=== PATIENT | male | born 1935 | race Caucasian/White ===

== ENCOUNTER 2016-11-13 12:30 | Outpatient (CLI) | payer MEDICARE ==
[2016-11-13 14:42] LABS: Cardiac Risk 3.8 (Less than 4.5)
== END 2016-11-13 12:31 ==
LOC: EDBD 12:30 → NAVSJIPCSP 12:30
PROVIDERS: ATTEND Internal Medicine
DX: Z23 Encounter for immunization (principal); E78.5 Hyperlipidemia, unspecified
CPT/HCPCS: 36415; 80061

== ENCOUNTER 2022-03-21 14:59 | Inpatient (IN) | payer MEDICARE ==
[2022-03-21] MEDS ORDERED: Bisacodyl 5 MG TAB PO PRN (17:10)
[2022-03-21] MEDS ORDERED: Ondansetron ODT 4 MG TAB PO PRN (17:10)
[2022-03-21] MEDS ORDERED: cloNIDine 0.1 MG TAB PO PRN (18:20)
[2022-03-21] MEDS ORDERED: Amlodipine 5 MG TAB PO SCH (18:30)
[2022-03-21] MEDS: Atorvastatin Calcium 20 MG TAB PO SCH (20:39)
[2022-03-21] MEDS: Donepezil HCl 5 MG TAB PO SCH (20:39)
[2022-03-21] MEDS: Tamsulosin HCl 0.4 MG CAP PO SCH (20:39)
[2022-03-22 06:25] LABS: #Basophils 0.1 thou/uL (0.0-0.2); #Eosinphils 0.2 thou/uL (0.0-0.7); #Lymphocytes 1.7 thou/uL (1.20-3.40); #Monocytes 0.7 thou/uL (0.11-0.59); #Neutrophils 3.9 thou/uL (1.40-6.50); %Eosinophils 2.5 % (0.0-10.0); %Lymphocytes 25.9 % (21.0-51.0); %Monocytes 10.3 % (0.0-10.0); %Neutrophils 60.3 % (42.0-75.0); Hemoglobin 13.3 g/dL (14.0-18.0); Mean Corpuscular HGB CONC 31.7 g/dL (32.0-36.0); Mean Corpuscular Hemoglobin 29.9 pg (27.0-31.0); Mean Corpuscular Volume 94.3 fL (78.0-98.0); Mean Platelet Volume 8.2 fL (7.4-10.4); Platelet Count 150 thou/uL (130-400); RBC Distribution Width 11.9 % (11.5-14.5); Red Blood Cell (RBC) Count 4.45 mill/uL (4.70-6.10); White Blood Cell (WBC) Count 6.5 thou/uL (4.8-10.8)
[2022-03-22 06:38] LABS: ALT (SGPT) 23 U/L (8-55); AST (SGOT) 16 U/L (5-34); Albumin 3.5 g/dL (3.4-4.8); Alkaline Phosphatase 51 U/L (40-110); Anion Gap 15 mmol/L (10-20); BUN (Urea Nitrogen) 14 mg/dL (8.4-25.7); Bilirubin, Total 0.8 mg/dL (0.2-1.2); Calc. Creatinine Clearance 77 mL/min (70-130); Calcium 8.9 mg/dL (7.8-10.44); Carbon Dioxide 26 mmol/L (23-31); Chloride 101 mmol/L (98-107); Estimated GFR 86; Globulin 3.1 g/dL (2.4-3.5); Glucose 114 mg/dL (83-110); Potassium 3.1 mmol/L (3.5-5.1); Protein, Total 6.6 g/dL (5.8-8.1); Sodium 139 mmol/L (136-145)
[2022-03-22] MEDS: Enoxaparin Sodium 40 MG/0.4 ML SYRINGE SC SCH (08:18)
[2022-03-22] MEDS ORDERED: Amlodipine 5 MG TAB PO SCH (13:00)
[2022-03-22] MEDS: Tamsulosin HCl 0.4 MG CAP PO SCH (20:55)
[2022-03-22] MEDS: Donepezil HCl 5 MG TAB PO SCH (20:55)
[2022-03-22] MEDS: Atorvastatin Calcium 20 MG TAB PO SCH (20:55)
[2022-03-23] MEDS: Potassium Chloride 20 MEQ TAB PO SCH (07:55)
[2022-03-23] MEDS: Enoxaparin Sodium 40 MG/0.4 ML SYRINGE SC SCH (07:55)
[2022-03-23] MEDS ORDERED: Ondansetron ODT 4 MG TAB SL PRN (08:15)
[2022-03-23] MEDS: Amlodipine 5 MG TAB PO SCH (10:20)
[2022-03-23] MEDS: Atorvastatin Calcium 20 MG TAB PO SCH (20:59)
[2022-03-23] MEDS: Tamsulosin HCl 0.4 MG CAP PO SCH (20:59)
[2022-03-23] MEDS: Donepezil HCl 5 MG TAB PO SCH (20:59)
[2022-03-23] MEDS: Acetaminophen 325 MG TAB PO PRN (20:59)
[2022-03-24] MEDS: Enoxaparin Sodium 40 MG/0.4 ML SYRINGE SC SCH (07:47)
[2022-03-24] MEDS: Potassium Chloride 20 MEQ TAB PO SCH (07:50)
[2022-03-24] MEDS: Amlodipine 5 MG TAB PO SCH (07:53)
[2022-03-24] MEDS: Atorvastatin Calcium 20 MG TAB PO SCH (20:04)
[2022-03-24] MEDS: Acetaminophen 325 MG TAB PO PRN (20:05)
[2022-03-24] MEDS: Tamsulosin HCl 0.4 MG CAP PO SCH (20:05)
[2022-03-24] MEDS: Donepezil HCl 5 MG TAB PO SCH (20:05)
[2022-03-25] MEDS: Enoxaparin Sodium 40 MG/0.4 ML SYRINGE SC SCH (07:32)
[2022-03-25] MEDS: Amlodipine 5 MG TAB PO SCH (07:33)
[2022-03-25] MEDS: Senokot S 8.6-50 MG TAB PO PRN (07:33)
[2022-03-25] MEDS: Potassium Chloride 20 MEQ TAB PO SCH (07:33)
[2022-03-25] MEDS ORDERED: Phenazopyridine HCl 100 MG TAB PO SCH ×2 (10:00→13:00)
[2022-03-25] MEDS ORDERED: Phenazopyridine HCl 95 MG TAB PO SCH (11:45)
[2022-03-25] MEDS ORDERED: Phenazopyridine HCl 95 MG TAB ONE ×3 (11:46→17:15)
[2022-03-25] MEDS: Phenazopyridine HCl 95 MG TAB PO SCH ×2 (14:28→18:03)
[2022-03-25] MEDS: Donepezil HCl 5 MG TAB PO SCH (20:22)
[2022-03-25] MEDS: Tamsulosin HCl 0.4 MG CAP PO SCH (20:22)
[2022-03-25] MEDS: Atorvastatin Calcium 20 MG TAB PO SCH (20:22)
[2022-03-26 06:06] LABS: Anion Gap 13 mmol/L (10-20); BUN (Urea Nitrogen) 16 mg/dL (8.4-25.7); Calc. Creatinine Clearance 71 mL/min (70-130); Calcium 8.9 mg/dL (7.8-10.44); Carbon Dioxide 27 mmol/L (23-31); Chloride 105 mmol/L (98-107); Estimated GFR 85; Glucose 105 mg/dL (83-110); Potassium 3.7 mmol/L (3.5-5.1); Sodium 141 mmol/L (136-145)
[2022-03-26] MEDS: Enoxaparin Sodium 40 MG/0.4 ML SYRINGE SC SCH (08:24)
[2022-03-26] MEDS: Amlodipine 5 MG TAB PO SCH (08:24)
[2022-03-26] MEDS: Phenazopyridine HCl 95 MG TAB PO SCH ×3 (08:25→16:57)
[2022-03-26] MEDS: Donepezil HCl 5 MG TAB PO SCH (20:17)
[2022-03-26] MEDS: Tamsulosin HCl 0.4 MG CAP PO SCH (20:17)
[2022-03-26] MEDS: Atorvastatin Calcium 20 MG TAB PO SCH (20:17)
[2022-03-27] MEDS: Enoxaparin Sodium 40 MG/0.4 ML SYRINGE SC SCH (09:05)
[2022-03-27] MEDS: Amlodipine 5 MG TAB PO SCH (09:06)
[2022-03-27] MEDS: Phenazopyridine HCl 95 MG TAB PO SCH (09:06)
[2022-03-27] MEDS: Tamsulosin HCl 0.4 MG CAP PO SCH (20:23)
[2022-03-27] MEDS: Atorvastatin Calcium 20 MG TAB PO SCH (20:23)
[2022-03-27] MEDS: Donepezil HCl 5 MG TAB PO SCH (20:23)
[2022-03-27] MEDS ORDERED: Lisinopril 5 MG TAB PO SCH (22:00)
[2022-03-28] MEDS: Amlodipine 10 MG TAB PO SCH (07:46)
[2022-03-28] MEDS: Senokot S 8.6-50 MG TAB PO PRN (07:46)
[2022-03-28] MEDS: Finasteride 5 MG TAB PO SCH (07:46)
[2022-03-28] MEDS: Enoxaparin Sodium 40 MG/0.4 ML SYRINGE SC SCH (07:46)
[2022-03-28] MEDS ORDERED: Bisacodyl 10 MG SUPP PR SCH (14:00)
[2022-03-28] MEDS: Donepezil HCl 5 MG TAB PO SCH (20:42)
[2022-03-28] MEDS: Tamsulosin HCl 0.4 MG CAP PO SCH (20:42)
[2022-03-28] MEDS: Atorvastatin Calcium 20 MG TAB PO SCH (20:42)
[2022-03-29] MEDS: Senokot S 8.6-50 MG TAB PO PRN (07:53)
[2022-03-29] MEDS: Enoxaparin Sodium 40 MG/0.4 ML SYRINGE SC SCH (07:53)
[2022-03-29] MEDS: Finasteride 5 MG TAB PO SCH (07:54)
[2022-03-29] MEDS: Amlodipine 10 MG TAB PO SCH (08:00)
[2022-03-29] MEDS: Tamsulosin HCl 0.4 MG CAP PO SCH (20:38)
[2022-03-29] MEDS: Donepezil HCl 5 MG TAB PO SCH (20:38)
[2022-03-29] MEDS: Atorvastatin Calcium 20 MG TAB PO SCH (20:38)
[2022-03-30 06:02] LABS: #Basophils 0.1 thou/uL (0.0-0.2); #Eosinphils 0.2 thou/uL (0.0-0.7); #Lymphocytes 2.8 thou/uL (1.20-3.40); #Monocytes 0.6 thou/uL (0.11-0.59); #Neutrophils 3.6 thou/uL (1.40-6.50); %Basophils 1.6 % (0.0-1.0); %Eosinophils 2.9 % (0.0-10.0); %Lymphocytes 37.8 % (21.0-51.0); %Monocytes 8.2 % (0.0-10.0); %Neutrophils 49.5 % (42.0-75.0); Hemoglobin 12.3 g/dL (14.0-18.0); Mean Corpuscular HGB CONC 31.8 g/dL (32.0-36.0); Mean Corpuscular Hemoglobin 30.5 pg (27.0-31.0); Mean Corpuscular Volume 95.9 fL (78.0-98.0); Mean Platelet Volume 7.4 fL (7.4-10.4); Platelet Count 251 thou/uL (130-400); Red Blood Cell (RBC) Count 4.02 mill/uL (4.70-6.10); White Blood Cell (WBC) Count 7.3 thou/uL (4.8-10.8)
[2022-03-30 06:14] LABS: Anion Gap 13 mmol/L (10-20); BUN (Urea Nitrogen) 21 mg/dL (8.4-25.7); Calc. Creatinine Clearance 61 mL/min (70-130); Calcium 9.1 mg/dL (7.8-10.44); Carbon Dioxide 28 mmol/L (23-31); Chloride 105 mmol/L (98-107); Estimated GFR 78; Glucose 102 mg/dL (83-110); Potassium 3.9 mmol/L (3.5-5.1); Sodium 142 mmol/L (136-145)
[2022-03-30] MEDS ORDERED: Sodium Chloride 0.9% 500 ML IV SCH (07:45)
[2022-03-30] MEDS: Amlodipine 5 MG TAB PO SCH (07:59)
[2022-03-30] MEDS: Finasteride 5 MG TAB PO SCH (07:59)
[2022-03-30] MEDS: Enoxaparin Sodium 40 MG/0.4 ML SYRINGE SC SCH (08:00)
[2022-03-30] MEDS: Donepezil HCl 5 MG TAB PO SCH (20:22)
[2022-03-30] MEDS: Atorvastatin Calcium 20 MG TAB PO SCH (20:22)
[2022-03-30] MEDS: Tamsulosin HCl 0.4 MG CAP PO SCH (20:22)
[2022-03-31] MEDS: Enoxaparin Sodium 40 MG/0.4 ML SYRINGE SC SCH (07:28)
[2022-03-31] MEDS: Finasteride 5 MG TAB PO SCH (07:29)
[2022-03-31] MEDS: Amlodipine 5 MG TAB PO SCH (07:29)
[2022-03-31] MEDS: Tamsulosin HCl 0.4 MG CAP PO SCH (20:43)
[2022-03-31] MEDS: Atorvastatin Calcium 20 MG TAB PO SCH (20:43)
[2022-03-31] MEDS: Donepezil HCl 5 MG TAB PO SCH (20:43)
[2022-04-01 03:14] VITALS: BMI 22.3
[2022-04-01] MEDS: Amlodipine 5 MG TAB PO SCH (09:49)
[2022-04-01] MEDS: Enoxaparin Sodium 40 MG/0.4 ML SYRINGE SC SCH (09:50)
[2022-04-01] MEDS: Finasteride 5 MG TAB PO SCH (09:50)
[2022-04-01] MEDS: Acetaminophen 325 MG TAB PO PRN (09:54)
[2022-04-01] MEDS: Tamsulosin HCl 0.4 MG CAP PO SCH (20:01)
[2022-04-01] MEDS: Donepezil HCl 5 MG TAB PO SCH (20:01)
[2022-04-01] MEDS: Atorvastatin Calcium 20 MG TAB PO SCH (20:01)
[2022-04-02 06:18] LABS: Anion Gap 13 mmol/L (10-20); BUN (Urea Nitrogen) 21 mg/dL (8.4-25.7); Calc. Creatinine Clearance 70 mL/min (70-130); Calcium 8.8 mg/dL (7.8-10.44); Carbon Dioxide 26 mmol/L (23-31); Chloride 107 mmol/L (98-107); Estimated GFR 84; Glucose 97 mg/dL (83-110); Potassium 3.7 mmol/L (3.5-5.1); Sodium 142 mmol/L (136-145)
[2022-04-02 06:30] LABS: #Basophils 0.1 thou/uL (0.0-0.2); #Eosinphils 0.2 thou/uL (0.0-0.7); #Lymphocytes 2.4 thou/uL (1.20-3.40); #Monocytes 0.5 thou/uL (0.11-0.59); #Neutrophils 3.6 thou/uL (1.40-6.50); %Basophils 1.5 % (0.0-1.0); %Eosinophils 2.7 % (0.0-10.0); %Lymphocytes 35.4 % (21.0-51.0); %Monocytes 7.3 % (0.0-10.0); Hemoglobin 11.9 g/dL (14.0-18.0); Mean Corpuscular HGB CONC 30.8 g/dL (32.0-36.0); Mean Corpuscular Volume 97.5 fL (78.0-98.0); Mean Platelet Volume 7.4 fL (7.4-10.4); Platelet Count 258 thou/uL (130-400); RBC Distribution Width 12.3 % (11.5-14.5); Red Blood Cell (RBC) Count 3.97 mill/uL (4.70-6.10); White Blood Cell (WBC) Count 6.8 thou/uL (4.8-10.8)
[2022-04-02] MEDS: Enoxaparin Sodium 40 MG/0.4 ML SYRINGE SC SCH (08:10)
[2022-04-02] MEDS: Senokot S 8.6-50 MG TAB PO PRN (08:10)
[2022-04-02] MEDS: Finasteride 5 MG TAB PO SCH (08:10)
[2022-04-02] MEDS: Amlodipine 5 MG TAB PO SCH (09:12)
[2022-04-02] MEDS ORDERED: Bisacodyl 10 MG SUPP PR PRN (20:17)
[2022-04-02] MEDS ORDERED: Milk Of Magnesia 30 ML UDCUP PO PRN (20:17)
[2022-04-02] MEDS: Tamsulosin HCl 0.4 MG CAP PO SCH (20:51)
[2022-04-02] MEDS: Atorvastatin Calcium 20 MG TAB PO SCH (20:51)
[2022-04-02] MEDS: Donepezil HCl 5 MG TAB PO SCH (20:52)
[2022-04-03] MEDS: Finasteride 5 MG TAB PO SCH (07:46)
[2022-04-03] MEDS: Enoxaparin Sodium 40 MG/0.4 ML SYRINGE SC SCH (07:46)
[2022-04-03] MEDS: Senokot S 8.6-50 MG TAB PO PRN (07:47)
[2022-04-03] MEDS: Amlodipine 5 MG TAB PO SCH (09:33)
[2022-04-03] MEDS: Polyethylene Glycol 3350 17 GM Packet PO SCH (09:33)
[2022-04-03] MEDS: Tamsulosin HCl 0.4 MG CAP PO SCH (20:26)
[2022-04-03] MEDS: Atorvastatin Calcium 20 MG TAB PO SCH (20:26)
[2022-04-03] MEDS: Donepezil HCl 5 MG TAB PO SCH (20:27)
[2022-04-04] MEDS: Enoxaparin Sodium 40 MG/0.4 ML SYRINGE SC SCH (09:01)
[2022-04-04] MEDS: Amlodipine 5 MG TAB PO SCH (09:01)
[2022-04-04] MEDS: Finasteride 5 MG TAB PO SCH (09:02)
[2022-04-04] MEDS: Polyethylene Glycol 3350 17 GM Packet PO SCH (09:02)
[2022-04-04] MEDS: Tamsulosin HCl 0.4 MG CAP PO SCH (20:24)
[2022-04-04] MEDS: Atorvastatin Calcium 20 MG TAB PO SCH (20:24)
[2022-04-04] MEDS: Donepezil HCl 5 MG TAB PO SCH (20:25)
[2022-04-05 06:45] LABS: #Basophils 0.1 thou/uL (0.0-0.2); #Eosinphils 0.2 thou/uL (0.0-0.7); #Lymphocytes 1.9 thou/uL (1.20-3.40); #Monocytes 0.8 thou/uL (0.11-0.59); #Neutrophils 7.1 thou/uL (1.40-6.50); %Basophils 1.2 % (0.0-1.0); %Eosinophils 1.8 % (0.0-10.0); %Lymphocytes 18.9 % (21.0-51.0); %Monocytes 7.8 % (0.0-10.0); %Neutrophils 70.4 % (42.0-75.0); Hemoglobin 11.8 g/dL (14.0-18.0); Mean Corpuscular Hemoglobin 30.2 pg (27.0-31.0); Mean Corpuscular Volume 97.5 fL (78.0-98.0); Mean Platelet Volume 7.8 fL (7.4-10.4); Platelet Count 240 thou/uL (130-400); RBC Distribution Width 12.2 % (11.5-14.5); White Blood Cell (WBC) Count 10.1 thou/uL (4.8-10.8)
[2022-04-05 07:02] LABS: Anion Gap 15 mmol/L (10-20); BUN (Urea Nitrogen) 19 mg/dL (8.4-25.7); Calc. Creatinine Clearance 71 mL/min (70-130); Calcium 8.8 mg/dL (7.8-10.44); Carbon Dioxide 25 mmol/L (23-31); Chloride 105 mmol/L (98-107); Estimated GFR 85; Glucose 107 mg/dL (83-110); Potassium 3.8 mmol/L (3.5-5.1); Sodium 141 mmol/L (136-145)
[2022-04-05] MEDS: Polyethylene Glycol 3350 17 GM Packet PO SCH (08:50)
[2022-04-05] MEDS: Amlodipine 5 MG TAB PO SCH (08:50)
[2022-04-05] MEDS: Finasteride 5 MG TAB PO SCH (08:51)
[2022-04-05] MEDS: Tamsulosin HCl 0.4 MG CAP PO SCH (20:34)
[2022-04-05] MEDS: Atorvastatin Calcium 20 MG TAB PO SCH (20:34)
[2022-04-05] MEDS: Donepezil HCl 5 MG TAB PO SCH (20:35)
[2022-04-06 06:09] LABS: #Basophils 0.1 thou/uL (0.0-0.2); #Eosinphils 0.2 thou/uL (0.0-0.7); #Lymphocytes 2.3 thou/uL (1.20-3.40); #Monocytes 0.6 thou/uL (0.11-0.59); #Neutrophils 4.2 thou/uL (1.40-6.50); %Basophils 1.5 % (0.0-1.0); %Eosinophils 2.6 % (0.0-10.0); %Monocytes 7.8 % (0.0-10.0); %Neutrophils 57.2 % (42.0-75.0); Hemoglobin 11.6 g/dL (14.0-18.0); Mean Corpuscular HGB CONC 31.4 g/dL (32.0-36.0); Mean Corpuscular Hemoglobin 30.5 pg (27.0-31.0); Mean Corpuscular Volume 97.3 fL (78.0-98.0); Mean Platelet Volume 7.7 fL (7.4-10.4); Platelet Count 239 thou/uL (130-400); RBC Distribution Width 12.6 % (11.5-14.5); Red Blood Cell (RBC) Count 3.81 mill/uL (4.70-6.10); White Blood Cell (WBC) Count 7.3 thou/uL (4.8-10.8)
[2022-04-06] MEDS: Polyethylene Glycol 3350 17 GM Packet PO SCH (08:33)
[2022-04-06] MEDS: Amlodipine 5 MG TAB PO SCH (08:33)
[2022-04-06 08:34] VITALS: BP 157/75
[2022-04-06] MEDS: Finasteride 5 MG TAB PO SCH (08:34)
[2022-04-06 08:51] VITALS: TEMP 98.3
== END 2022-04-06 14:10 | disposition home health service (06) | DRG 948 ==
LOC: EDBD → NAV ACUTE 16:51
PROVIDERS: ADMIT Family Medicine; ATTEND Family Medicine
PROC: 8E0ZXY6 Isolation (ICD-10-PCS; principal; 2022-03-21)
DX: R53.1 Weakness (principal); F03.90 Unspecified dementia, unspecified severity, without behavioral disturbance, psychotic disturbance, mood disturbance, and anxiety; I10 Essential (primary) hypertension; E78.5 Hyperlipidemia, unspecified; H40.9 Unspecified glaucoma; R33.9 Retention of urine, unspecified; R53.81 Other malaise; D64.9 Anemia, unspecified; Z66 Do not resuscitate; Z86.16 Personal history of COVID-19; Z87.01 Personal history of pneumonia (recurrent); Z79.899 Other long term (current) drug therapy
CPT/HCPCS: 36415; 80048; 80053; 85025; J1650; J7030

== ENCOUNTER 2022-04-14 09:28 | Emergency (ER) | payer MEDICARE ==
[2022-04-14] MEDS ORDERED: Ondansetron PF 4 MG/2 ML Vial ONE (10:01)
== END 2022-04-14 10:31 | disposition home or self-care (01) ==
LOC: NAV ERS 09:28
DX: T83.021A Displacement of indwelling urethral catheter, initial encounter (principal); F03.90 Unspecified dementia, unspecified severity, without behavioral disturbance, psychotic disturbance, mood disturbance, and anxiety; I10 Essential (primary) hypertension; E78.00 Pure hypercholesterolemia, unspecified
CPT/HCPCS: 51702; J2405

== ENCOUNTER 2022-04-20 15:44 | Emergency (ER) | payer MEDICARE ==
[2022-04-20] MEDS ORDERED: Sodium Chloride 0.9% 1,000 ML ONE (16:43)
[2022-04-20 16:46] LABS: #Basophils 0.1 thou/uL (0.0-0.2); #Lymphocytes 1.2 thou/uL (1.20-3.40); #Monocytes 0.8 thou/uL (0.11-0.59); %Basophils 0.6 % (0.0-1.0); %Eosinophils 0.3 % (0.0-10.0); %Lymphocytes 8.2 % (21.0-51.0); %Monocytes 5.7 % (0.0-10.0); %Neutrophils 85.2 % (42.0-75.0); Hemoglobin 11.6 g/dL (14.0-18.0); Mean Corpuscular HGB CONC 32.2 g/dL (32.0-36.0); Mean Corpuscular Hemoglobin 31.7 pg (27.0-31.0); Mean Corpuscular Volume 98.3 fL (78.0-98.0); Mean Platelet Volume 7.5 fL (7.4-10.4); Platelet Count 159 thou/uL (130-400); RBC Distribution Width 12.2 % (11.5-14.5); Red Blood Cell (RBC) Count 3.65 mill/uL (4.70-6.10); White Blood Cell (WBC) Count 14.1 thou/uL (4.8-10.8)
[2022-04-20 16:50] LABS: PTT 30.6 sec (22.9-36.1); Prothrombin Time 13.5 sec (12.0-14.7)
[2022-04-20 16:56] LABS: ALT (SGPT) 15 U/L (8-55); AST (SGOT) 7 U/L (5-34); Albumin 3.5 g/dL (3.4-4.8); Alkaline Phosphatase 62 U/L (40-110); Anion Gap 18 mmol/L (10-20); BUN (Urea Nitrogen) 18 mg/dL (8.4-25.7); Bilirubin, Total 0.5 mg/dL (0.2-1.2); Calc. Creatinine Clearance 0 mL/min (70-130); Calcium 8.6 mg/dL (7.8-10.44); Carbon Dioxide 25 mmol/L (23-31); Chloride 102 mmol/L (98-107); Estimated GFR 70; Globulin 2.5 g/dL (2.4-3.5); Potassium 4.3 mmol/L (3.5-5.1); Sodium 141 mmol/L (136-145)
[2022-04-20 16:57] LABS: Glucose 156 mg/dL (83-110)
[2022-04-20 18:40] LABS: Bilirubin Negative (Negative); Blood, Urine Large (Negative); Glucose, Urine (Dipstick) Negative (Negative); Ketone, Urine Negative (Negative); Leukocyte Trace (Negative); Nitrite Positive (Negative); Protein, Urine (Dipstick) > or equal to 300 mg/dL (Neg-Trace); Specific Gravity, Urine 1.025 (1.005-1.030); pH, Urine 6.5 (5.0-9.0)
[2022-04-20 18:41] LABS: Clarity Cloudy (Clear)
[2022-04-20 18:42] LABS: Bacteria/HPF 3+ HPF (None Seen); RBC/HPF Greater than 50 HPF (0-3); Squamous Epithelial 0-3 HPF (0-3)
[2022-04-20] MEDS ORDERED: Cephalexin 250 MG CAP ONE (19:03)
== END 2022-04-20 19:24 | disposition home or self-care (01) ==
LOC: NAV ERS 15:44
DX: S37.30XA Unspecified injury of urethra, initial encounter (principal); N39.0 Urinary tract infection, site not specified; R31.0 Gross hematuria; I10 Essential (primary) hypertension; E78.00 Pure hypercholesterolemia, unspecified; Z87.891 Personal history of nicotine dependence; X58.XXXA Exposure to other specified factors, initial encounter
CPT/HCPCS: 51702; 80053; 81003; 81015; 85025; 85610; 85730; 87077; 87086; 87186; J7050

== ENCOUNTER 2022-08-02 09:19 | Inpatient (IN) | payer MEDICARE ==
[2022-08-02 09:57] LABS: Bilirubin Moderate (Negative); Blood, Urine Large (Negative); Clarity Cloudy (Clear); Glucose, Urine (Dipstick) Negative (Negative); Ketone, Urine 15 mg/dL (Negative); Leukocyte Large (Negative); Nitrite Negative (Negative); Protein, Urine (Dipstick) 100 mg/dL (Neg-Trace)
[2022-08-02] MEDS ORDERED: Sodium Chloride 0.9% 1,000 ML ONE ×2 (10:01→11:29)
[2022-08-02 10:04] LABS: Specific Gravity, Urine 1.025 (1.002-1.036)
[2022-08-02 10:08] LABS: Bacteria/HPF 2+ HPF (None Seen); Mucous/LPF Rare LPF (<2+); RBC/HPF 21-50 HPF (0-3); WBC/HPF Greater than 50 HPF (0-3)
[2022-08-02 10:19] LABS: ALT (SGPT) 10 U/L (8-55); AST (SGOT) 13 U/L (5-34); Albumin 3.7 g/dL (3.4-4.8); Alkaline Phosphatase 62 U/L (40-110); Anion Gap 16 mmol/L (10-20); BUN (Urea Nitrogen) 29 mg/dL (8.4-25.7); Bilirubin, Total 0.7 mg/dL (0.2-1.2); CK (CPK) 519 U/L (30-200); Calc. Creatinine Clearance 0 mL/min (70-130); Calcium 9.5 mg/dL (7.8-10.44); Carbon Dioxide 22 mmol/L (23-31); Chloride 105 mmol/L (98-107); Estimated GFR 55; Globulin 3.6 g/dL (2.4-3.5); Glucose 126 mg/dL (83-110); Potassium 3.9 mmol/L (3.5-5.1); Protein, Total 7.3 g/dL (5.8-8.1); Sodium 139 mmol/L (136-145)
[2022-08-02 10:51] LABS: SARS-CoV-2 NAA Rapid Test Not Detected (NotDetected)
[2022-08-02] MEDS ORDERED: cefTRIAXone\\ROCEPHIN 2 GM VIAL ONE (11:05)
[2022-08-02] MEDS ORDERED: Sodium Chloride 0.9% 100 ML ONE (11:05)
[2022-08-02 11:22] LABS: #Eosinphils 0.1 thou/uL (0.0-0.7); #Monocytes 0.9 thou/uL (0.11-0.59); #Neutrophils 6.7 thou/uL (1.40-6.50); %Basophils 0.4 % (0.0-1.0); %Eosinophils 0.9 % (0.0-10.0); %Lymphocytes 20.9 % (21.0-51.0); %Monocytes 8.8 % (0.0-10.0); %Neutrophils 69.1 % (42.0-75.0); Mean Corpuscular HGB CONC 32.9 g/dL (32.0-36.0); Mean Corpuscular Hemoglobin 31.6 pg (27.0-31.0); Mean Corpuscular Volume 96.3 fl (78.0-98.0); Mean Platelet Volume 8.2 fL (7.4-10.4); Platelet Count 198 10x3/uL (130-400); RBC Distribution Width 11.8 % (11.5-14.5); Red Blood Cell (RBC) Count 4.43 mill/uL (4.70-6.10); White Blood Cell (WBC) Count 9.7 10x3/uL (4.8-10.8)
[2022-08-02] MEDS ORDERED: Ondansetron ODT 4 MG TAB SL PRN (15:00)
[2022-08-02] MEDS ORDERED: Acetaminophen 325 MG TAB PO PRN ×2 (15:00→19:40)
[2022-08-02] MEDS ORDERED: Ondansetron PF 4 MG/2 ML Vial IVP PRN (15:00)
[2022-08-02] MEDS: Sodium Chloride 0.9% 1,000 ML IV SCH ×2 (15:12→18:50)
[2022-08-02] MEDS ORDERED: Bisacodyl 5 MG TAB PO PRN (19:32)
[2022-08-02] MEDS ORDERED: Artificial Tear Sol 15 ML BOT EA EYE PRN (19:32)
[2022-08-02] MEDS ORDERED: Senokot S 8.6-50 MG TAB PO PRN (19:32)
[2022-08-02] MEDS ORDERED: Benzonatate 100 MG CAP PO PRN (19:32)
[2022-08-02] MEDS ORDERED: Cepastat Lozenges 1 LOZ PO PRN (19:32)
[2022-08-02] MEDS ORDERED: Bisacodyl 10 MG SUPP PR PRN (19:32)
[2022-08-02] MEDS ORDERED: Guaifenesin DM 100-10/5 ML UDCUP PO PRN (19:32)
[2022-08-02] MEDS ORDERED: Sodium Chloride 0.65% Nasal 44 ML BOT EA NARE PRN (19:32)
[2022-08-02] MEDS: Famotidine/PF 20 mg/2ml Vial SLOW IVP SCH (20:58)
[2022-08-02] MEDS: Donepezil HCl 5 MG TAB PO SCH (20:59)
[2022-08-02] MEDS: QUEtiapine 25 MG TAB PO SCH (20:59)
[2022-08-02] MEDS: Atorvastatin Calcium 20 MG TAB PO SCH (20:59)
[2022-08-02] MEDS ORDERED: Tamsulosin HCl 0.4 MG CAP PO SCH (21:00)
[2022-08-03] MEDS: Sodium Chloride 0.9% 1,000 ML IV SCH ×5 (01:45→23:30)
[2022-08-03] MEDS: Finasteride 5 MG TAB PO SCH (08:21)
[2022-08-03] MEDS: Lisinopril 10 MG TAB PO SCH (08:22)
[2022-08-03] MEDS ORDERED: Amlodipine 5 MG TAB PO SCH (09:00)
[2022-08-03 09:31] LABS: Anion Gap 12 mmol/L (10-20); BUN (Urea Nitrogen) 13 mg/dL (8.4-25.7); Calc. Creatinine Clearance 72 mL/min (70-130); Calcium 8.5 mg/dL (7.8-10.44); Carbon Dioxide 24 mmol/L (23-31); Chloride 106 mmol/L (98-107); Estimated GFR 84; Glucose 140 mg/dL (83-110); Potassium 3.7 mmol/L (3.5-5.1); Sodium 138 mmol/L (136-145)
[2022-08-03 09:34] LABS: #Basophils 0.1 thou/uL (0.0-0.2); #Eosinphils 0.1 thou/uL (0.0-0.7); #Lymphocytes 1.4 thou/uL (1.20-3.40); #Monocytes 0.7 thou/uL (0.11-0.59); #Neutrophils 7.7 thou/uL (1.40-6.50); %Basophils 0.9 % (0.0-1.0); %Eosinophils 1.4 % (0.0-10.0); %Lymphocytes 13.8 % (21.0-51.0); %Monocytes 7.1 % (0.0-10.0); %Neutrophils 76.8 % (42.0-75.0); Hemoglobin 12.9 g/dL (14.0-18.0); Mean Corpuscular HGB CONC 33.8 g/dL (32.0-36.0); Mean Corpuscular Hemoglobin 31.5 pg (27.0-31.0); Mean Corpuscular Volume 93.2 fl (78.0-98.0); Mean Platelet Volume 7.8 fL (7.4-10.4); Platelet Count 175 10x3/uL (130-400); RBC Distribution Width 11.7 % (11.5-14.5); Red Blood Cell (RBC) Count 4.09 mill/uL (4.70-6.10)
[2022-08-03] MEDS: cefTRIAXone\\ROCEPHIN 2 GM in Sodium Chloride 0.9% 100 ML IVPB SCH (11:19)
[2022-08-03] MEDS: Amlodipine 5 MG TAB PO SCH (19:53)
[2022-08-03] MEDS: Atorvastatin Calcium 20 MG TAB PO SCH (19:54)
[2022-08-03] MEDS: Donepezil HCl 5 MG TAB PO SCH (19:54)
[2022-08-03] MEDS: Tamsulosin HCl 0.4 MG CAP PO SCH (19:54)
[2022-08-03] MEDS: QUEtiapine 25 MG TAB PO SCH (19:54)
[2022-08-03] MEDS: Famotidine/PF 20 mg/2ml Vial SLOW IVP SCH (19:55)
[2022-08-03] MEDS: Mupirocin 2% Ointment 22 GM Tube TOP SCH (19:55)
[2022-08-04] MEDS: Finasteride 5 MG TAB PO SCH (08:59)
[2022-08-04] MEDS: Cholecalciferol 1,000 UNITS (25 MCG) TAB PO SCH (09:00)
[2022-08-04] MEDS: Lisinopril 10 MG TAB PO SCH (09:00)
[2022-08-04] MEDS: Polyethylene Glycol 3350 17 GM Packet PO SCH (09:00)
[2022-08-04] MEDS: Fish Oil 1,000 MG CAP PO SCH (09:00)
[2022-08-04] MEDS: Mupirocin 2% Ointment 22 GM Tube TOP SCH ×2 (09:01→20:14)
[2022-08-04] MEDS: Cyanocobalamin (Vitamin B-12) 1,000 MCG TAB PO SCH (09:01)
[2022-08-04] MEDS: Sodium Chloride 0.9% 1,000 ML IV SCH ×2 (09:03→09:04)
[2022-08-04] MEDS: cefTRIAXone\\ROCEPHIN 2 GM in Sodium Chloride 0.9% 100 ML IVPB SCH (10:40)
[2022-08-04 11:00] LABS: #Basophils 0.1 thou/uL (0.0-0.2); #Eosinphils 0.1 thou/uL (0.0-0.7); #Lymphocytes 1.4 thou/uL (1.20-3.40); #Monocytes 0.7 thou/uL (0.11-0.59); #Neutrophils 5.3 thou/uL (1.40-6.50); %Basophils 1.2 % (0.0-1.0); %Lymphocytes 18.5 % (21.0-51.0); %Monocytes 8.6 % (0.0-10.0); %Neutrophils 69.7 % (42.0-75.0); Hemoglobin 13.3 g/dL (14.0-18.0); Mean Corpuscular HGB CONC 32.5 g/dL (32.0-36.0); Mean Corpuscular Hemoglobin 30.9 pg (27.0-31.0); Mean Corpuscular Volume 94.9 fl (78.0-98.0); Mean Platelet Volume 7.8 fL (7.4-10.4); Platelet Count 188 10x3/uL (130-400); RBC Distribution Width 11.4 % (11.5-14.5); Red Blood Cell (RBC) Count 4.31 mill/uL (4.70-6.10); White Blood Cell (WBC) Count 7.6 10x3/uL (4.8-10.8)
[2022-08-04 11:14] LABS: Anion Gap 12 mmol/L (10-20); BUN (Urea Nitrogen) 10 mg/dL (8.4-25.7); Calc. Creatinine Clearance 81 mL/min (70-130); Carbon Dioxide 25 mmol/L (23-31); Chloride 105 mmol/L (98-107); Estimated GFR 87; Glucose 133 mg/dL (83-110); Potassium 3.5 mmol/L (3.5-5.1); Sodium 138 mmol/L (136-145)
[2022-08-04] MEDS: Amlodipine 5 MG TAB PO SCH (20:13)
[2022-08-04] MEDS: QUEtiapine 25 MG TAB PO SCH (20:13)
[2022-08-04] MEDS: Tamsulosin HCl 0.4 MG CAP PO SCH (20:14)
[2022-08-04] MEDS: Melatonin 3 MG TAB PO SCH (20:14)
[2022-08-04] MEDS: Atorvastatin Calcium 20 MG TAB PO SCH (20:14)
[2022-08-04] MEDS: Donepezil HCl 5 MG TAB PO SCH (20:14)
[2022-08-04] MEDS: Acetaminophen 325 MG TAB PO PRN (20:15)
[2022-08-05 05:41] VITALS: BMI 24.8
[2022-08-05] MEDS: Lisinopril 10 MG TAB PO SCH (08:05)
[2022-08-05] MEDS: Fish Oil 1,000 MG CAP PO SCH (08:05)
[2022-08-05] MEDS: Cholecalciferol 1,000 UNITS (25 MCG) TAB PO SCH (08:05)
[2022-08-05] MEDS: Cyanocobalamin (Vitamin B-12) 1,000 MCG TAB PO SCH (08:05)
[2022-08-05] MEDS: Finasteride 5 MG TAB PO SCH (08:05)
[2022-08-05] MEDS: Polyethylene Glycol 3350 17 GM Packet PO SCH (08:07)
[2022-08-05] MEDS: Mupirocin 2% Ointment 22 GM Tube TOP SCH ×2 (08:07→21:19)
[2022-08-05] MEDS ORDERED: Cefdinir 300 MG CAP PO SCH (11:15)
[2022-08-05] MEDS: Melatonin 3 MG TAB PO SCH (18:30)
[2022-08-05] MEDS ORDERED: QUEtiapine 100 MG TAB PO SCH (21:00)
[2022-08-05] MEDS: Famotidine 20 MG TAB PO SCH (21:14)
[2022-08-05] MEDS: Cefdinir 300 MG CAP PO SCH (21:15)
[2022-08-05] MEDS: Donepezil HCl 5 MG TAB PO SCH (21:15)
[2022-08-05] MEDS: Atorvastatin Calcium 20 MG TAB PO SCH (21:15)
[2022-08-05] MEDS: Tamsulosin HCl 0.4 MG CAP PO SCH (21:15)
[2022-08-05] MEDS: Amlodipine 5 MG TAB PO SCH (21:15)
[2022-08-05] MEDS: Acetaminophen 325 MG TAB PO PRN (21:16)
[2022-08-06] MEDS: Cefdinir 300 MG CAP PO SCH (08:35)
[2022-08-06] MEDS: Cholecalciferol 1,000 UNITS (25 MCG) TAB PO SCH (08:35)
[2022-08-06] MEDS: Fish Oil 1,000 MG CAP PO SCH (08:36)
[2022-08-06] MEDS: Famotidine 20 MG TAB PO SCH (08:36)
[2022-08-06] MEDS: Finasteride 5 MG TAB PO SCH (08:36)
[2022-08-06] MEDS: Cyanocobalamin (Vitamin B-12) 1,000 MCG TAB PO SCH (08:36)
[2022-08-06] MEDS: Lisinopril 10 MG TAB PO SCH (08:37)
[2022-08-06] MEDS: Mupirocin 2% Ointment 22 GM Tube TOP SCH (08:37)
[2022-08-06] MEDS: Polyethylene Glycol 3350 17 GM Packet PO SCH (08:40)
[2022-08-06 14:07] VITALS: BP 122/62; TEMP 97.1
[2022-08-06] MEDS ORDERED: hydrOXYzine 25 MG TAB PO SCH ×2 (14:45→15:00)
== END 2022-08-06 16:58 | disposition swing bed (61) | DRG 690 ==
LOC: NAV ERS 09:19 → NAV ACUTE 13:25 → INTOOBSV 13:25 → OBSVTOIN 13:25 → NAV ACUTE 13:30 → NAV ERS 13:30
PROVIDERS: ADMIT Family Medicine; ATTEND Family Medicine
DX: N30.01 Acute cystitis with hematuria (principal); F05 Delirium due to known physiological condition; M62.82 Rhabdomyolysis; Z66 Do not resuscitate; I10 Essential (primary) hypertension; F03.90 Unspecified dementia, unspecified severity, without behavioral disturbance, psychotic disturbance, mood disturbance, and anxiety; R53.1 Weakness; H40.9 Unspecified glaucoma; E78.2 Mixed hyperlipidemia; E78.00 Pure hypercholesterolemia, unspecified; Z20.822 Contact with and (suspected) exposure to COVID-19; Z79.899 Other long term (current) drug therapy
CPT/HCPCS: 36415; 80048; 80053; 81003; 81015; 82550; 83605; 85025; 87040; 96361; 96365; G0378; J0696; J1650; J3490; J7050; S0028; U0002

== ENCOUNTER 2022-08-06 17:18 | Inpatient (IN) | payer MEDICARE ==
[2022-08-06] MEDS ORDERED: Artificial Tear Sol 15 ML BOT EA EYE PRN (19:49)
[2022-08-06] MEDS ORDERED: Benzonatate 100 MG CAP PO PRN (19:49)
[2022-08-06] MEDS ORDERED: Sodium Chloride 0.65% Nasal 44 ML BOT EA NARE PRN (19:49)
[2022-08-06] MEDS ORDERED: Cepastat Lozenges 1 LOZ PO PRN (19:49)
[2022-08-06] MEDS ORDERED: Guaifenesin DM 100-10/5 ML UDCUP PO PRN (19:49)
[2022-08-06] MEDS ORDERED: Bisacodyl 5 MG TAB PO PRN (19:49)
[2022-08-06] MEDS ORDERED: Ondansetron ODT 4 MG TAB SL PRN (19:49)
[2022-08-06] MEDS ORDERED: Calcium Carbonate 500 MG ChewTAB PO PRN (19:49)
[2022-08-06] MEDS ORDERED: Bisacodyl 10 MG SUPP PR PRN (19:49)
[2022-08-06] MEDS ORDERED: Senokot S 8.6-50 MG TAB PO PRN (19:49)
[2022-08-06] MEDS ORDERED: Acetaminophen 650 MG Suppository PR PRN (19:49)
[2022-08-06] MEDS: Cefdinir 300 MG CAP PO SCH (21:04)
[2022-08-06] MEDS: Tamsulosin HCl 0.4 MG CAP PO SCH (21:04)
[2022-08-06] MEDS: Acetaminophen 325 MG TAB PO PRN (21:05)
[2022-08-06] MEDS: Melatonin 3 MG TAB PO SCH (21:05)
[2022-08-06] MEDS: Atorvastatin Calcium 20 MG TAB PO SCH (21:06)
[2022-08-06] MEDS: Donepezil HCl 5 MG TAB PO SCH (21:06)
[2022-08-06] MEDS: Mupirocin 2% Ointment 22 GM Tube TOP SCH (21:06)
[2022-08-06] MEDS: QUEtiapine 100 MG TAB PO SCH (21:06)
[2022-08-07] MEDS: Cholecalciferol 1,000 UNITS (25 MCG) TAB PO SCH (09:37)
[2022-08-07] MEDS: Multivitamin w/Zinc Stress 1 TAB PO SCH (09:37)
[2022-08-07] MEDS: Fish Oil 1,000 MG CAP PO SCH (09:37)
[2022-08-07] MEDS: Lisinopril 10 MG TAB PO SCH (09:38)
[2022-08-07] MEDS: Finasteride 5 MG TAB PO SCH (09:38)
[2022-08-07] MEDS: Amlodipine 5 MG TAB PO SCH (09:38)
[2022-08-07] MEDS: Cefdinir 300 MG CAP PO SCH ×2 (09:39→20:20)
[2022-08-07] MEDS: Polyethylene Glycol 3350 17 GM Packet PO SCH (09:40)
[2022-08-07] MEDS: Mupirocin 2% Ointment 22 GM Tube TOP SCH ×2 (09:40→20:20)
[2022-08-07 09:52] LABS: #Neutrophils 3.8 thou/uL (1.40-6.50); %Basophils 1.7 % (0.0-1.0); %Eosinophils 3.7 % (0.0-10.0); %Lymphocytes 27.9 % (21.0-51.0); %Monocytes 8.2 % (0.0-10.0); %Neutrophils 58.5 % (42.0-75.0); Mean Corpuscular HGB CONC 32.5 g/dL (32.0-36.0); Mean Corpuscular Hemoglobin 30.6 pg (27.0-31.0); Mean Corpuscular Volume 94.2 fl (78.0-98.0); Mean Platelet Volume 7.4 fL (7.4-10.4); Platelet Count 240 10x3/uL (130-400); RBC Distribution Width 11.5 % (11.5-14.5); Red Blood Cell (RBC) Count 4.58 mill/uL (4.70-6.10); White Blood Cell (WBC) Count 6.5 10x3/uL (4.8-10.8)
[2022-08-07 09:53] LABS: #Basophils 0.1 thou/uL (0.0-0.2); #Eosinphils 0.2 thou/uL (0.0-0.7); #Lymphocytes 1.8 thou/uL (1.20-3.40); #Monocytes 0.5 thou/uL (0.11-0.59)
[2022-08-07 10:29] LABS: ALT (SGPT) 15 U/L (8-55); AST (SGOT) 11 U/L (5-34); Albumin 3.6 g/dL (3.4-4.8); Alkaline Phosphatase 57 U/L (40-110); Anion Gap 14 mmol/L (10-20); BUN (Urea Nitrogen) 15 mg/dL (8.4-25.7); Bilirubin, Total 0.4 mg/dL (0.2-1.2); Calc. Creatinine Clearance 71 mL/min (70-130); Calcium 9.6 mg/dL (7.8-10.44); Carbon Dioxide 28 mmol/L (23-31); Chloride 103 mmol/L (98-107); Estimated GFR 83; Globulin 3.3 g/dL (2.4-3.5); Glucose 114 mg/dL (83-110); Potassium 3.6 mmol/L (3.5-5.1); Protein, Total 6.9 g/dL (5.8-8.1); Sodium 141 mmol/L (136-145)
[2022-08-07] MEDS: Donepezil HCl 5 MG TAB PO SCH (20:19)
[2022-08-07] MEDS: Tamsulosin HCl 0.4 MG CAP PO SCH (20:20)
[2022-08-07] MEDS: Atorvastatin Calcium 20 MG TAB PO SCH (20:20)
[2022-08-07] MEDS: Melatonin 3 MG TAB PO SCH (20:20)
[2022-08-07] MEDS: QUEtiapine 100 MG TAB PO SCH (20:20)
[2022-08-08 09:47] LABS: #Basophils 0.1 thou/uL (0.0-0.2); #Eosinphils 0.2 thou/uL (0.0-0.7); #Lymphocytes 1.7 thou/uL (1.20-3.40); #Monocytes 0.4 thou/uL (0.11-0.59); #Neutrophils 3.5 thou/uL (1.40-6.50); %Basophils 1.6 % (0.0-1.0); %Eosinophils 3.7 % (0.0-10.0); %Lymphocytes 28.9 % (21.0-51.0); %Monocytes 6.8 % (0.0-10.0); Hemoglobin 13.1 g/dL (14.0-18.0); Mean Corpuscular HGB CONC 32.4 g/dL (32.0-36.0); Mean Corpuscular Hemoglobin 30.8 pg (27.0-31.0); Mean Platelet Volume 7.2 fL (7.4-10.4); Platelet Count 217 10x3/uL (130-400); RBC Distribution Width 11.9 % (11.5-14.5); Red Blood Cell (RBC) Count 4.27 mill/uL (4.70-6.10); White Blood Cell (WBC) Count 5.9 10x3/uL (4.8-10.8)
[2022-08-08 09:53] LABS: ALT (SGPT) 21 U/L (8-55); AST (SGOT) 14 U/L (5-34); Albumin 3.3 g/dL (3.4-4.8); Alkaline Phosphatase 50 U/L (40-110); Anion Gap 12 mmol/L (10-20); BUN (Urea Nitrogen) 19 mg/dL (8.4-25.7); Bilirubin, Total 0.3 mg/dL (0.2-1.2); Calc. Creatinine Clearance 61 mL/min (70-130); Calcium 9.1 mg/dL (7.8-10.44); Chloride 104 mmol/L (98-107); Estimated GFR 71; Glucose 156 mg/dL (83-110); Potassium 3.6 mmol/L (3.5-5.1); Protein, Total 6.3 g/dL (5.8-8.1); Sodium 140 mmol/L (136-145)
[2022-08-08] MEDS: Cefdinir 300 MG CAP PO SCH ×2 (10:01→21:01)
[2022-08-08] MEDS: Cholecalciferol 1,000 UNITS (25 MCG) TAB PO SCH (10:01)
[2022-08-08] MEDS: Fish Oil 1,000 MG CAP PO SCH (10:02)
[2022-08-08] MEDS: Multivitamin w/Zinc Stress 1 TAB PO SCH (10:02)
[2022-08-08] MEDS: Amlodipine 5 MG TAB PO SCH (10:03)
[2022-08-08] MEDS: Polyethylene Glycol 3350 17 GM Packet PO SCH (10:05)
[2022-08-08] MEDS: Mupirocin 2% Ointment 22 GM Tube TOP SCH ×2 (10:06→20:57)
[2022-08-08] MEDS: Lisinopril 10 MG TAB PO SCH (10:06)
[2022-08-08] MEDS: Finasteride 5 MG TAB PO SCH (10:12)
[2022-08-08 10:50] LABS: Carbon Dioxide 28 mmol/L (23-31)
[2022-08-08] MEDS: Donepezil HCl 5 MG TAB PO SCH (20:57)
[2022-08-08] MEDS: Atorvastatin Calcium 20 MG TAB PO SCH (21:00)
[2022-08-08] MEDS: Acetaminophen 325 MG TAB PO PRN (21:00)
[2022-08-08] MEDS ORDERED: risperiDONE 0.5 MG TAB PO SCH (21:00)
[2022-08-08] MEDS: Melatonin 3 MG TAB PO SCH (21:00)
[2022-08-08] MEDS: Tamsulosin HCl 0.4 MG CAP PO SCH (21:00)
[2022-08-09] MEDS: Cefdinir 300 MG CAP PO SCH ×2 (08:54→21:06)
[2022-08-09] MEDS: Cholecalciferol 1,000 UNITS (25 MCG) TAB PO SCH (08:54)
[2022-08-09] MEDS: Fish Oil 1,000 MG CAP PO SCH (08:54)
[2022-08-09] MEDS: Multivitamin w/Zinc Stress 1 TAB PO SCH (08:54)
[2022-08-09] MEDS: Finasteride 5 MG TAB PO SCH (08:55)
[2022-08-09] MEDS: Lisinopril 10 MG TAB PO SCH (08:55)
[2022-08-09] MEDS: Amlodipine 5 MG TAB PO SCH (08:56)
[2022-08-09] MEDS: Mupirocin 2% Ointment 22 GM Tube TOP SCH ×2 (08:57→21:07)
[2022-08-09] MEDS: Polyethylene Glycol 3350 17 GM Packet PO SCH (09:12)
[2022-08-09] MEDS: risperiDONE 0.5 MG TAB PO SCH (17:57)
[2022-08-09] MEDS: Donepezil HCl 5 MG TAB PO SCH (21:06)
[2022-08-09] MEDS: Atorvastatin Calcium 20 MG TAB PO SCH (21:06)
[2022-08-09] MEDS: Melatonin 3 MG TAB PO SCH (21:06)
[2022-08-09] MEDS: Tamsulosin HCl 0.4 MG CAP PO SCH (21:06)
[2022-08-10] MEDS: Amlodipine 5 MG TAB PO SCH (08:49)
[2022-08-10] MEDS: Cholecalciferol 1,000 UNITS (25 MCG) TAB PO SCH (08:49)
[2022-08-10] MEDS: Fish Oil 1,000 MG CAP PO SCH (08:50)
[2022-08-10] MEDS: Multivitamin w/Zinc Stress 1 TAB PO SCH (08:50)
[2022-08-10] MEDS: Lisinopril 10 MG TAB PO SCH (08:50)
[2022-08-10] MEDS: Finasteride 5 MG TAB PO SCH (08:50)
[2022-08-10] MEDS: Polyethylene Glycol 3350 17 GM Packet PO SCH (08:50)
[2022-08-10] MEDS: Cefdinir 300 MG CAP PO SCH ×2 (08:50→20:21)
[2022-08-10] MEDS: Mupirocin 2% Ointment 22 GM Tube TOP SCH ×2 (08:51→20:21)
[2022-08-10 11:01] LABS: ALT (SGPT) 31 U/L (8-55); AST (SGOT) 17 U/L (5-34); Albumin 3.9 g/dL (3.4-4.8); Alkaline Phosphatase 58 U/L (40-110); Anion Gap 17 mmol/L (10-20); BUN (Urea Nitrogen) 21 mg/dL (8.4-25.7); Bilirubin, Total 0.3 mg/dL (0.2-1.2); Calc. Creatinine Clearance 52 mL/min (70-130); Calcium 9.7 mg/dL (7.8-10.44); Carbon Dioxide 25 mmol/L (23-31); Chloride 105 mmol/L (98-107); Estimated GFR 60; Globulin 3.4 g/dL (2.4-3.5); Glucose 125 mg/dL (83-110); Protein, Total 7.3 g/dL (5.8-8.1); Sodium 143 mmol/L (136-145)
[2022-08-10 11:15] LABS: #Basophils 0.1 thou/uL (0.0-0.2); #Eosinphils 0.2 thou/uL (0.0-0.7); #Lymphocytes 2.3 thou/uL (1.20-3.40); #Monocytes 0.5 thou/uL (0.11-0.59); #Neutrophils 4.8 thou/uL (1.40-6.50); %Basophils 1.3 % (0.0-1.0); %Lymphocytes 28.4 % (21.0-51.0); %Monocytes 6.8 % (0.0-10.0); %Neutrophils 60.5 % (42.0-75.0); Hemoglobin 14.5 g/dL (14.0-18.0); Mean Corpuscular HGB CONC 31.8 g/dL (32.0-36.0); Mean Corpuscular Hemoglobin 30.8 pg (27.0-31.0); Mean Corpuscular Volume 96.8 fl (78.0-98.0); Mean Platelet Volume 7.4 fL (7.4-10.4); Platelet Count 257 10x3/uL (130-400); Red Blood Cell (RBC) Count 4.72 mill/uL (4.70-6.10); White Blood Cell (WBC) Count 7.9 10x3/uL (4.8-10.8)
[2022-08-10] MEDS: hydrOXYzine 25 MG TAB PO PRN (16:03)
[2022-08-10] MEDS: risperiDONE 0.5 MG TAB PO SCH (18:00)
[2022-08-10] MEDS: Atorvastatin Calcium 20 MG TAB PO SCH (20:20)
[2022-08-10] MEDS: Melatonin 3 MG TAB PO SCH (20:20)
[2022-08-10] MEDS: Tamsulosin HCl 0.4 MG CAP PO SCH (20:21)
[2022-08-10] MEDS: Donepezil HCl 5 MG TAB PO SCH (20:21)
[2022-08-11] MEDS: Polyethylene Glycol 3350 17 GM Packet PO SCH (09:09)
[2022-08-11] MEDS: Fish Oil 1,000 MG CAP PO SCH (09:10)
[2022-08-11] MEDS: Multivitamin w/Zinc Stress 1 TAB PO SCH (09:10)
[2022-08-11] MEDS: Amlodipine 5 MG TAB PO SCH (09:10)
[2022-08-11] MEDS: Cholecalciferol 1,000 UNITS (25 MCG) TAB PO SCH (09:10)
[2022-08-11] MEDS: Cefdinir 300 MG CAP PO SCH ×2 (09:10→20:32)
[2022-08-11] MEDS: Finasteride 5 MG TAB PO SCH (09:11)
[2022-08-11] MEDS: hydrOXYzine 25 MG TAB PO PRN ×2 (09:11→17:53)
[2022-08-11] MEDS: Lisinopril 10 MG TAB PO SCH (09:11)
[2022-08-11] MEDS: Mupirocin 2% Ointment 22 GM Tube TOP SCH ×2 (09:11→20:33)
[2022-08-11] MEDS: risperiDONE 0.5 MG TAB PO SCH (17:53)
[2022-08-11] MEDS: Tamsulosin HCl 0.4 MG CAP PO SCH (20:32)
[2022-08-11] MEDS: Donepezil HCl 5 MG TAB PO SCH (20:32)
[2022-08-11] MEDS: Atorvastatin Calcium 20 MG TAB PO SCH (20:32)
[2022-08-11] MEDS: Melatonin 3 MG TAB PO SCH (20:32)
[2022-08-12] MEDS: Polyethylene Glycol 3350 17 GM Packet PO SCH (08:53)
[2022-08-12] MEDS: Cholecalciferol 1,000 UNITS (25 MCG) TAB PO SCH ×2 (08:54→09:12)
[2022-08-12] MEDS: Mupirocin 2% Ointment 22 GM Tube TOP SCH ×2 (09:12→20:12)
[2022-08-12] MEDS: Cefdinir 300 MG CAP PO SCH ×2 (09:12→20:05)
[2022-08-12] MEDS: Amlodipine 5 MG TAB PO SCH (09:13)
[2022-08-12] MEDS: Lisinopril 10 MG TAB PO SCH (09:14)
[2022-08-12] MEDS: Finasteride 5 MG TAB PO SCH (09:14)
[2022-08-12] MEDS: Multivitamin w/Zinc Stress 1 TAB PO SCH (09:14)
[2022-08-12] MEDS: Fish Oil 1,000 MG CAP PO SCH (09:14)
[2022-08-12] MEDS: risperiDONE 0.5 MG TAB PO SCH (17:56)
[2022-08-12] MEDS: Atorvastatin Calcium 20 MG TAB PO SCH (20:05)
[2022-08-12] MEDS: Tamsulosin HCl 0.4 MG CAP PO SCH (20:05)
[2022-08-12] MEDS: Donepezil HCl 5 MG TAB PO SCH (20:05)
[2022-08-12] MEDS: Melatonin 3 MG TAB PO SCH (20:05)
[2022-08-12] MEDS: hydrOXYzine 25 MG TAB PO PRN (20:08)
[2022-08-13 08:53] LABS: #Basophils 0.1 thou/uL (0.0-0.2); #Eosinphils 0.3 thou/uL (0.0-0.7); #Lymphocytes 2.2 thou/uL (1.20-3.40); #Monocytes 0.5 thou/uL (0.11-0.59); #Neutrophils 4.2 thou/uL (1.40-6.50); %Basophils 1.3 % (0.0-1.0); %Eosinophils 3.9 % (0.0-10.0); %Monocytes 6.3 % (0.0-10.0); %Neutrophils 58.5 % (42.0-75.0); Mean Corpuscular Hemoglobin 30.8 pg (27.0-31.0); Mean Corpuscular Volume 96.4 fl (78.0-98.0); Mean Platelet Volume 7.2 fL (7.4-10.4); Platelet Count 241 10x3/uL (130-400); Red Blood Cell (RBC) Count 4.21 mill/uL (4.70-6.10); White Blood Cell (WBC) Count 7.2 10x3/uL (4.8-10.8)
[2022-08-13 09:11] LABS: Anion Gap 15 mmol/L (10-20); BUN (Urea Nitrogen) 25 mg/dL (8.4-25.7); Calc. Creatinine Clearance 59 mL/min (70-130); Calcium 9.1 mg/dL (7.8-10.44); Carbon Dioxide 22 mmol/L (23-31); Chloride 105 mmol/L (98-107); Estimated GFR 69; Glucose 139 mg/dL (83-110); Sodium 138 mmol/L (136-145)
[2022-08-13 09:57] LABS: ALT (SGPT) 26 U/L (8-55); AST (SGOT) 11 U/L (5-34); Albumin 3.4 g/dL (3.4-4.8); Alkaline Phosphatase 49 U/L (40-110); Bilirubin, Total 0.3 mg/dL (0.2-1.2); Globulin 2.7 g/dL (2.4-3.5); Protein, Total 6.1 g/dL (5.8-8.1)
[2022-08-13] MEDS: Mupirocin 2% Ointment 22 GM Tube TOP SCH ×2 (10:00→20:39)
[2022-08-13] MEDS: Cefdinir 300 MG CAP PO SCH ×2 (10:02→20:39)
[2022-08-13] MEDS: Finasteride 5 MG TAB PO SCH (10:02)
[2022-08-13] MEDS: Fish Oil 1,000 MG CAP PO SCH (10:02)
[2022-08-13] MEDS: Amlodipine 5 MG TAB PO SCH (10:02)
[2022-08-13] MEDS: Multivitamin w/Zinc Stress 1 TAB PO SCH (10:02)
[2022-08-13] MEDS: Lisinopril 10 MG TAB PO SCH (10:02)
[2022-08-13] MEDS: Polyethylene Glycol 3350 17 GM Packet PO SCH (10:03)
[2022-08-13] MEDS: hydrOXYzine 25 MG TAB PO PRN (17:58)
[2022-08-13] MEDS: risperiDONE 0.5 MG TAB PO SCH (17:58)
[2022-08-13] MEDS: Tamsulosin HCl 0.4 MG CAP PO SCH (20:38)
[2022-08-13] MEDS: Donepezil HCl 5 MG TAB PO SCH (20:38)
[2022-08-13] MEDS: Atorvastatin Calcium 20 MG TAB PO SCH (20:38)
[2022-08-13] MEDS: Melatonin 3 MG TAB PO SCH (20:38)
[2022-08-14] MEDS: Polyethylene Glycol 3350 17 GM Packet PO SCH (09:49)
[2022-08-14] MEDS: Amlodipine 5 MG TAB PO SCH (09:50)
[2022-08-14] MEDS: hydrOXYzine 25 MG TAB PO PRN ×2 (09:51→17:15)
[2022-08-14] MEDS: Finasteride 5 MG TAB PO SCH (09:51)
[2022-08-14] MEDS: Cholecalciferol 1,000 UNITS (25 MCG) TAB PO SCH (09:51)
[2022-08-14] MEDS: Acetaminophen 325 MG TAB PO PRN (09:51)
[2022-08-14] MEDS: Cefdinir 300 MG CAP PO SCH ×2 (09:51→20:37)
[2022-08-14] MEDS: Multivitamin w/Zinc Stress 1 TAB PO SCH (09:52)
[2022-08-14] MEDS: Fish Oil 1,000 MG CAP PO SCH (09:52)
[2022-08-14] MEDS: Lisinopril 10 MG TAB PO SCH (09:52)
[2022-08-14] MEDS: Mupirocin 2% Ointment 22 GM Tube TOP SCH ×2 (09:53→20:37)
[2022-08-14 10:09] VITALS: BMI 25.4
[2022-08-14] MEDS: risperiDONE 0.5 MG TAB PO SCH (17:15)
[2022-08-14 18:33] LABS: Bilirubin Negative (Negative); Blood, Urine Moderate (Negative); Glucose, Urine (Dipstick) Negative (Negative); Ketone, Urine Trace mg/dL (Negative); Leukocyte Negative (Negative); Nitrite Negative (Negative); Protein, Urine (Dipstick) 30 mg/dL (Neg-Trace); Urobilinogen 0.2 mg/dL (Less than 2)
[2022-08-14 18:38] LABS: Clarity Hazy (Clear)
[2022-08-14 18:47] LABS: Bacteria/HPF 3+ HPF (None Seen); CAUTI Indications for Culture Dysuria,urgency,freq; Squamous Epithelial 0-3 HPF (0-3); WBC/HPF 0-3 HPF (0-3)
[2022-08-14 18:48] LABS: Urine Culture Reflex No No
[2022-08-14] MEDS: Melatonin 3 MG TAB PO SCH (20:36)
[2022-08-14] MEDS: Tamsulosin HCl 0.4 MG CAP PO SCH (20:36)
[2022-08-14] MEDS: Atorvastatin Calcium 20 MG TAB PO SCH (20:36)
[2022-08-14] MEDS: Donepezil HCl 5 MG TAB PO SCH (20:36)
[2022-08-15 09:19] LABS: #Basophils 0.1 thou/uL (0.0-0.2); #Eosinphils 0.3 thou/uL (0.0-0.7); #Lymphocytes 2.2 thou/uL (1.20-3.40); #Monocytes 0.5 thou/uL (0.11-0.59); #Neutrophils 3.9 thou/uL (1.40-6.50); %Basophils 1.7 % (0.0-1.0); %Eosinophils 3.9 % (0.0-10.0); %Lymphocytes 31.5 % (21.0-51.0); %Monocytes 6.6 % (0.0-10.0); %Neutrophils 56.4 % (42.0-75.0); Hemoglobin 12.8 g/dL (14.0-18.0); Mean Corpuscular HGB CONC 32.2 g/dL (32.0-36.0); Mean Corpuscular Hemoglobin 30.7 pg (27.0-31.0); Mean Corpuscular Volume 95.2 fl (78.0-98.0); Mean Platelet Volume 7.8 fL (7.4-10.4); Platelet Count 234 10x3/uL (130-400); RBC Distribution Width 11.9 % (11.5-14.5); Red Blood Cell (RBC) Count 4.17 mill/uL (4.70-6.10); White Blood Cell (WBC) Count 6.9 10x3/uL (4.8-10.8)
[2022-08-15 09:30] LABS: ALT (SGPT) 24 U/L (8-55); AST (SGOT) 10 U/L (5-34); Albumin 3.6 g/dL (3.4-4.8); Alkaline Phosphatase 56 U/L (40-110); Anion Gap 16 mmol/L (10-20); BUN (Urea Nitrogen) 28 mg/dL (8.4-25.7); Bilirubin, Total 0.4 mg/dL (0.2-1.2); Calc. Creatinine Clearance 45 mL/min (70-130); Calcium 9.1 mg/dL (7.8-10.44); Carbon Dioxide 24 mmol/L (23-31); Chloride 105 mmol/L (98-107); Estimated GFR 50; Globulin 2.7 g/dL (2.4-3.5); Glucose 151 mg/dL (83-110); Potassium 4.5 mmol/L (3.5-5.1); Protein, Total 6.3 g/dL (5.8-8.1); Sodium 140 mmol/L (136-145)
[2022-08-15] MEDS: Cholecalciferol 1,000 UNITS (25 MCG) TAB PO SCH (09:44)
[2022-08-15] MEDS: Polyethylene Glycol 3350 17 GM Packet PO SCH (09:44)
[2022-08-15] MEDS: Multivitamin w/Zinc Stress 1 TAB PO SCH (09:44)
[2022-08-15] MEDS: Amlodipine 5 MG TAB PO SCH (09:45)
[2022-08-15] MEDS: Fish Oil 1,000 MG CAP PO SCH (09:45)
[2022-08-15] MEDS: Cefdinir 300 MG CAP PO SCH ×2 (09:45→20:09)
[2022-08-15] MEDS: Lisinopril 10 MG TAB PO SCH (09:45)
[2022-08-15] MEDS: Finasteride 5 MG TAB PO SCH (09:45)
[2022-08-15] MEDS: Nitrofurantoin Monohyd/M-Cryst 100 MG CAP PO SCH ×2 (09:45→20:10)
[2022-08-15] MEDS: Mupirocin 2% Ointment 22 GM Tube TOP SCH ×2 (09:46→20:10)
[2022-08-15] MEDS: hydrOXYzine 25 MG TAB PO PRN (17:34)
[2022-08-15] MEDS: risperiDONE 0.5 MG TAB PO SCH (17:34)
[2022-08-15] MEDS: Melatonin 3 MG TAB PO SCH (20:09)
[2022-08-15] MEDS: Tamsulosin HCl 0.4 MG CAP PO SCH (20:10)
[2022-08-15] MEDS: Atorvastatin Calcium 20 MG TAB PO SCH (20:10)
[2022-08-15] MEDS: Donepezil HCl 5 MG TAB PO SCH (20:10)
[2022-08-16] MEDS: Finasteride 5 MG TAB PO SCH (08:17)
[2022-08-16] MEDS: Amlodipine 5 MG TAB PO SCH (08:17)
[2022-08-16] MEDS: Cholecalciferol 1,000 UNITS (25 MCG) TAB PO SCH (08:17)
[2022-08-16] MEDS: Cefdinir 300 MG CAP PO SCH (08:18)
[2022-08-16] MEDS: Multivitamin w/Zinc Stress 1 TAB PO SCH (08:18)
[2022-08-16] MEDS: Nitrofurantoin Monohyd/M-Cryst 100 MG CAP PO SCH ×2 (08:18→20:14)
[2022-08-16] MEDS: Mupirocin 2% Ointment 22 GM Tube TOP SCH ×2 (08:19→20:15)
[2022-08-16] MEDS: Fish Oil 1,000 MG CAP PO SCH (08:19)
[2022-08-16] MEDS: Polyethylene Glycol 3350 17 GM Packet PO SCH (08:20)
[2022-08-16] MEDS: Lisinopril 10 MG TAB PO SCH (08:21)
[2022-08-16] MEDS: risperiDONE 0.5 MG TAB PO SCH (18:07)
[2022-08-16] MEDS: Tamsulosin HCl 0.4 MG CAP PO SCH (20:13)
[2022-08-16] MEDS: Donepezil HCl 5 MG TAB PO SCH (20:14)
[2022-08-16] MEDS: Atorvastatin Calcium 20 MG TAB PO SCH (20:14)
[2022-08-16] MEDS: Melatonin 3 MG TAB PO SCH (20:14)
[2022-08-16] MEDS: Acetaminophen 325 MG TAB PO PRN (20:15)
[2022-08-17] MEDS: Fish Oil 1,000 MG CAP PO SCH (08:59)
[2022-08-17] MEDS: Polyethylene Glycol 3350 17 GM Packet PO SCH (08:59)
[2022-08-17] MEDS: Cholecalciferol 1,000 UNITS (25 MCG) TAB PO SCH (08:59)
[2022-08-17] MEDS: Lisinopril 10 MG TAB PO SCH (08:59)
[2022-08-17] MEDS: Multivitamin w/Zinc Stress 1 TAB PO SCH (09:00)
[2022-08-17] MEDS: Nitrofurantoin Monohyd/M-Cryst 100 MG CAP PO SCH (09:00)
[2022-08-17] MEDS: Finasteride 5 MG TAB PO SCH (09:00)
[2022-08-17] MEDS: Mupirocin 2% Ointment 22 GM Tube TOP SCH (09:01)
[2022-08-17] MEDS: Amlodipine 5 MG TAB PO SCH (09:01)
[2022-08-17 09:03] VITALS: BP 148/65; TEMP 98
[2022-08-17 10:20] LABS: ALT (SGPT) 21 U/L (8-55); AST (SGOT) 9 U/L (5-34); Albumin 3.6 g/dL (3.4-4.8); Alkaline Phosphatase 56 U/L (40-110); Anion Gap 13 mmol/L (10-20); BUN (Urea Nitrogen) 26 mg/dL (8.4-25.7); Bilirubin, Total 0.4 mg/dL (0.2-1.2); Calc. Creatinine Clearance 49 mL/min (70-130); Calcium 9.1 mg/dL (7.8-10.44); Carbon Dioxide 26 mmol/L (23-31); Chloride 104 mmol/L (98-107); Estimated GFR 57; Globulin 2.9 g/dL (2.4-3.5); Glucose 160 mg/dL (83-110); Potassium 4.4 mmol/L (3.5-5.1); Protein, Total 6.5 g/dL (5.8-8.1); Sodium 139 mmol/L (136-145)
[2022-08-17 10:51] LABS: #Basophils 0.1 thou/uL (0.0-0.2); #Eosinphils 0.2 thou/uL (0.0-0.7); #Lymphocytes 1.4 thou/uL (1.20-3.40); #Monocytes 0.4 thou/uL (0.11-0.59); #Neutrophils 4.1 thou/uL (1.40-6.50); %Basophils 1.2 % (0.0-1.0); %Eosinophils 3.4 % (0.0-10.0); %Lymphocytes 22.3 % (21.0-51.0); %Monocytes 6.9 % (0.0-10.0); %Neutrophils 66.1 % (42.0-75.0); Hemoglobin 12.7 g/dL (14.0-18.0); Mean Corpuscular HGB CONC 32.9 g/dL (32.0-36.0); Mean Corpuscular Hemoglobin 31.1 pg (27.0-31.0); Mean Corpuscular Volume 94.4 fl (78.0-98.0); Mean Platelet Volume 8.3 fL (7.4-10.4); Platelet Count 217 10x3/uL (130-400); RBC Distribution Width 11.9 % (11.5-14.5); Red Blood Cell (RBC) Count 4.09 mill/uL (4.70-6.10); White Blood Cell (WBC) Count 6.3 10x3/uL (4.8-10.8)
== END 2022-08-17 13:45 | disposition home health service (06) | DRG 948 ==
LOC: UNDOADMIN 17:18 → NAV ACUTE 17:18
PROVIDERS: ADMIT Family Medicine; ATTEND Family Medicine
DX: R53.81 Other malaise (principal); F03.90 Unspecified dementia, unspecified severity, without behavioral disturbance, psychotic disturbance, mood disturbance, and anxiety; I10 Essential (primary) hypertension; Z66 Do not resuscitate; E78.5 Hyperlipidemia, unspecified; R33.9 Retention of urine, unspecified; H40.9 Unspecified glaucoma; R00.0 Tachycardia, unspecified; Z20.822 Contact with and (suspected) exposure to COVID-19; Z74.01 Bed confinement status; Z79.899 Other long term (current) drug therapy
CPT/HCPCS: 36415; 80053; 81001; 85025; 87077; 87086; 87186; 87811; J1650

== ENCOUNTER 2022-10-05 10:02 | Emergency (ER) | payer MEDICARE ==
[2022-10-05] MEDS ORDERED: Bacitracin 1 PK ONE (10:42)
== END 2022-10-05 10:49 | disposition home or self-care (01) ==
LOC: NAV ERS 10:02
DX: L89.229 Pressure ulcer of left hip, unspecified stage (principal); I10 Essential (primary) hypertension; E78.00 Pure hypercholesterolemia, unspecified; Z87.891 Personal history of nicotine dependence
CPT/HCPCS: 99283

== ENCOUNTER 2022-10-12 03:43 | Emergency (ER) | payer MEDICARE ==
[2022-10-12 04:36] LABS: #Basophils 0.1 thou/uL (0.0-0.2); #Eosinphils 0.2 thou/uL (0.0-0.7); #Lymphocytes 2.1 thou/uL (1.20-3.40); #Monocytes 0.6 thou/uL (0.11-0.59); #Neutrophils 5.5 thou/uL (1.40-6.50); %Eosinophils 2.1 % (0.0-10.0); %Lymphocytes 24.4 % (21.0-51.0); %Monocytes 7.5 % (0.0-10.0); Hemoglobin 12.8 g/dL (14.0-18.0); Mean Corpuscular HGB CONC 31.9 g/dL (32.0-36.0); Mean Corpuscular Hemoglobin 30.4 pg (27.0-31.0); Mean Corpuscular Volume 95.5 fl (78.0-98.0); Mean Platelet Volume 6.8 fL (7.4-10.4); Platelet Count 199 10x3/uL (130-400); Red Blood Cell (RBC) Count 4.22 mill/uL (4.70-6.10); White Blood Cell (WBC) Count 8.4 10x3/uL (4.8-10.8)
[2022-10-12 04:43] LABS: ALT (SGPT) 18 U/L (8-55); AST (SGOT) 17 U/L (5-34); Alkaline Phosphatase 65 U/L (40-110); Anion Gap 19 mmol/L (10-20); BUN (Urea Nitrogen) 17 mg/dL (8.4-25.7); Bilirubin, Total 0.6 mg/dL (0.2-1.2); Calc. Creatinine Clearance 0 mL/min (70-130); Calcium 9.7 mg/dL (7.8-10.44); Carbon Dioxide 24 mmol/L (23-31); Chloride 105 mmol/L (98-107); Estimated GFR 72; Globulin 3.4 g/dL (2.4-3.5); Glucose 113 mg/dL (83-110); Potassium 4.7 mmol/L (3.5-5.1); Protein, Total 7.4 g/dL (5.8-8.1); Sodium 143 mmol/L (136-145)
[2022-10-12] MEDS ORDERED: Acetaminophen 500 MG TAB ONE (05:43)
== END 2022-10-12 07:35 | disposition home or self-care (01) ==
LOC: NAV ERS 03:43 → EDBD 03:43 → NAV ERS 07:35
DX: T83.091A Other mechanical complication of indwelling urethral catheter, initial encounter (principal); R00.0 Tachycardia, unspecified; I10 Essential (primary) hypertension; Z79.899 Other long term (current) drug therapy
CPT/HCPCS: 51701; 80053; 83605; 85025; 93005